=== PATIENT | female | born 2000 | race Caucasian/White ===

== ENCOUNTER 2021-03-11 14:20 | Emergency (ER) | payer SELFPAY ==
[2021-03-11 14:32] VITALS: BP 109/66; PULSE 77; RESP 16; TEMP 37; O2SAT 100
--- NOTE | 2021-03-11 14:48 | ED.UPPEXIN ---
HPI - Extremity Injury (Upper) General Chief Complaint: Extremity Injury, Upper Stated Complaint: finger pain Time Seen by Provider: 03/11/21 14:55 Source: patient, RN notes reviewed and old records reviewed Mode of arrival: ambulatory Limitations: no limitations History of Present Illness HPI narrative: 20-year-old female presents to [facility] with complaints of right distal middle finger pain for 3 days duration. Patient has swelling, redness, and pain to distal dorsal right finger near nail bed with induration of tissue along lateral aspect of finger. Patient states that her finger has become more painful and swollen in the past 24 hours, denies any injury to her finger or any known fever, chills or sweats. Patient does have artificial nails. MD complaint: injury to: right and finger (middle no injury) Onset (ago): day(s) (3) Handedness: right Severity: moderate Severity scale (1-10): 7 Exacerbating factors: other (palpation of area) Context: other (no injury) Related Data Home Medications Medication Instructions Recorded Confirmed levonorgestrel [Mirena] 1 device INTRAUTERINE ONCE 03/11/21 03/11/21 Allergies Allergy/AdvReac Type Severity Reaction Status Date / Time amoxicillin Allergy Unknown VOMITING Verified 05/25/19 19:30 clavulanic acid Allergy Unknown VOMITING Verified 05/25/19 19:30 Review of Systems Review of Systems: Narrative: CONSTITUTIONAL: Denies fever, chills, or sweats. EYES: Denies visual changes, redness, or discharge. ENT: Denies rhinorrhea, congestion, sore throat, or otalgia. CARDIOVASCULAR: Denies chest pain, palpitations, or edema. RESPIRATORY: Denies cough or dyspnea. GASTROINTESTINAL: Denies abdominal pain, nausea, vomiting, or diarrhea. GENITOURINARY: Denies dysuria or hematuria. SKIN: Denies rash or itching, positive for swelling, redness and pain to distal right 3rd finger adjacent to nail bed. MUSCULOSKELETAL: Denies back pain, joint pain, or myalgia. NEUROLOGIC: Denies headache, numbness, or weakness. PSYCHIATRIC: Denies anxiety or depression. All systems reviewed & are unremarkable except as noted in HPI and below PMFSH Past Medical History Medical History (Updated 03/14/21 @ 08:21 by Teresa Garcia NP) Encounter for debridement of skin right arm and left leg when child for staph infection Febrile seizure as child MRSA (methicillin resistant Staphylococcus aureus) infection Family History Family History (Updated 03/14/21 @ 08:17 by Teresa Garcia NP) Other Diabetes mellitus Hypertension Social History Social History (Updated 03/14/21 @ 08:17 by Teresa Garcia NP) Alcohol intake: never Substance use: never Living arrangements: with family Gender identity (if verbalized by the patient): Female Comments At time of signature, agree with nursing past medical, surgical, social and family history. There is no relevant family history pertinent to the presenting complaint Exam Narrative: Exam Narrative: GENERAL: Well-appearing, well-nourished, and in no acute distress. HEAD: Normocephalic, atraumatic. EYES: PERRLA and EOMI. ENT: Nares clear, no rhinorrhea or epistaxis. Mucous membranes moist. NECK: Supple. no lymphadenopathy CHEST: Clear to auscultation. No respiratory distress.SAO2 100% on room air HEART: Regular rate and rhythm. No murmur heard. Normal peripheral pulses. ABDOMEN: Soft, nontender, nondistended, normal active bowel sounds. EXTREMITIES: Normal range of motion. No edema.Exception to right middle finger along nail bed on lateral aspect which is red and swollen and indurated and painful to palpation. SKIN: Warm, dry, no rash. NEURO: No focal deficits. Alert and oriented x3. Course Vital Signs Vital signs: Vital Signs Temperature 37.0 C 03/11/21 14:32 Pulse Rate 77 03/11/21 14:32 Respiratory Rate 16 03/11/21 14:32 Blood Pressure 109/66 03/11/21 14:32 Pulse Oximetry 100 03/11/21 14:32 Temperature 37.0 C 03/11
== END 2021-03-11 15:22 | disposition home or self-care (01) ==
PROVIDERS: Emergency Provider Registered Nurse
DX: L03.011 Cellulitis of right finger (principal); Z86.16 Personal history of COVID-19
CPT/HCPCS: 10160; 99213; G0463

== ENCOUNTER 2022-07-07 10:58 | Emergency (ER) | payer SELFPAY ==
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
[2022-07-07 11:07] VITALS: BP 106/81; PULSE 98; RESP 16; TEMP 36.9; O2SAT 98
== END 2022-07-07 11:19 | disposition home or self-care (01) ==
PROVIDERS: Emergency Provider Nurse Practitioner Family
DX: H69.81 Other specified disorders of Eustachian tube, right ear (principal); H65.01 Acute serous otitis media, right ear; Z86.14 Personal history of Methicillin resistant Staphylococcus aureus infection
CPT/HCPCS: 99213; G0463